=== PATIENT | female | born 1990 | race Two or more races ===

== ENCOUNTER 2016-12-20 22:28 | Emergency (ER) | payer SELFPAY ==
[~2016-12-20] VITALS: Ht 165.1 cm; Wt 59.0 kg
[2016-12-20] MEDS ORDERED: NKM (22:44)
[2016-12-20] MEDS ORDERED: NEURONTIN100 MG ORAL (22:44)
[2016-12-20 22:50] VITALS: BP 100/62
[2016-12-20] MEDS ORDERED: cefTRIAXone 1 GM in NS 55 ML IVPB ONE (23:00)
[2016-12-20] MEDS ORDERED: Naloxone 1mg/ml 2ml IVP ONE (23:15)
[2016-12-20 23:34] LABS: BASOPHILS % (AUTO) 1.2 % (0.0-2.0); EOSINOPHILS % (AUTO) 3.9 % (0.0-3.0); LYMPHOCYTES % (AUTO) 18.7 % (20.0-45.0); MEAN CORPUSCULAR HEMOGLOBIN 34.1 PG (27.0-31.0); MEAN CORPUSCULAR HGB CONC 35.2 G/DL (32.0-36.0); MEAN CORPUSCULAR VOLUME 97 FL (80-99); MEAN PLATELET VOLUME 6.8 FL (6.5-10.1); MONOCYTES % (AUTO) 10.6 % (1.0-10.0); NEUTROPHILS % (AUTO) 65.6 % (45.0-75.0); PLATELET COUNT 223 K/UL (150-450); RED BLOOD COUNT 3.69 M/UL (4.20-5.40); WHITE BLOOD COUNT 7.2 K/UL (4.8-10.8)
[2016-12-20 23:47] LABS: ACETAMINOPHEN < 10 ug/mL (10-30); ALANINE AMINOTRANSFERASE 12 U/L (3-33); ALBUMIN/GLOBULIN RATIO 1.5 (1.0-2.7); ALCOHOL < 10 mg/dL; ANION GAP 13 (5-15); ASPARTATE AMINO TRANSFERASE 14 U/L (5-40); CALCIUM 6.3 mg/dL (8.6-10.2); CARBON DIOXIDE 21 mEQ/L (20-30); CHLORIDE 111 mEQ/L (98-107); CREATININE 0.5 mg/dL (0.5-0.9); GLOMERULAR FILTRATION RATE > 60 mL/min (>60); HEMOLYSIS 12; SODIUM 145 mEQ/L (135-145); TOTAL PROTEIN 4.6 g/dL (6.6-8.7)
[2016-12-21 00:15] VITALS: BP 114/62
[2016-12-21 01:32] VITALS: BP 116/62
[2016-12-21] MEDS ORDERED: BACTRIM DS TAB1 EAC1 ORAL (01:33)
[2016-12-21 04:52] VITALS: BP 124/71
[2016-12-21 06:10] VITALS: BP 124/71
--- NOTE | 2016-12-21 07:08 | Emergency Room Report ---
History of Present Illness General Chief Complaint: Overdose Source: Patient, EMS Present Illness HPI This is a 26-year-old female presented after having recent use of the fentanyl and heroin. The patient denied any fever she denied a locations of pain this time. Patient was not given Narcan by EMS. Patient brought in by EMS after bystanders called. Allergies: Coded Allergies: No Known Allergies (Unverified , 12/20/16) Patient History Past Medical History: see triage record Last Menstrual Period: 3 weeks ago Reviewed Nursing Documentation: PMH: Agreed, PSxH: Agreed Nursing Documentation-PMH Past Medical History: No Stated History Review of Systems All Other Systems: negative except mentioned in HPI Physical Exam Vital Signs Date Time Temp Pulse Resp B/P Pulse Ox O2 Delivery O2 Flow Rate FiO2 12/20/16 22:39 98.2 93 10 100/62 96 Room Air Sp02 EP Interpretation: reviewed, normal General Appearance: normal inspection, well appearing, no apparent distress, alert Head: atraumatic ENT: normal ENT inspection, hearing grossly normal, normal voice Neck: normal inspection, full range of motion, supple, no bony tend Respiratory: normal inspection, lungs clear, normal breath sounds, no respiratory distress, no retraction, no wheezing, other - decreased respiratory effort Cardiovascular #1: regular rate, rhythm, no edema Gastrointestinal: normal inspection, normal bowel sounds, non tender, soft, no guarding, no hernia Genitourinary: no CVA tenderness Musculoskeletal: normal inspection, back normal, normal range of motion Neurologic: normal inspection, alert, responsive, speech normal Psychiatric: normal inspection, judgement/insight normal, mood/affect normal Skin: normal inspection, normal color, no rash Medical Decision Making Diagnostic Impression: Primary Impression: Drug overdose ER Course Patient presented for altered mental status. Differential diagnosis included but was not limited to ischemic stroke, subarachnoid hemorrhage, hypoglycemia, spinal cord injury, neurodegenerative disorder, urinary tract infection, hypoxemia. Because of complexity of patient's case laboratory testing and imaging studies were ordered. The patient was given IV Narcan with improvement in her mental status as well as her respiratory rate. The patient was observed in the emergency department stable throughout stay. The patient was subsequently discharged with her father. Labs Test 12/20/16 23:17 White Blood Count 7.2 K/UL (4.8-10.8) Red Blood Count 3.69 M/UL (4.20-5.40) Hemoglobin 12.6 G/DL (12.0-16.0) Hematocrit 35.7 % (37.0-47.0) Mean Corpuscular Volume 97 FL (80-99) Mean Corpuscular Hemoglobin 34.1 PG (27.0-31.0) Mean Corpuscular Hemoglobin Concent 35.2 G/DL (32.0-36.0) Red Cell Distribution Width 11.0 % (11.6-14.8) Platelet Count 223 K/UL (150-450) Mean Platelet Volume 6.8 FL (6.5-10.1) Neutrophils (%) (Auto) 65.6 % (45.0-75.0) Lymphocytes (%) (Auto) 18.7 % (20.0-45.0) Monocytes (%) (Auto) 10.6 % (1.0-10.0) Eosinophils (%) (Auto) 3.9 % (0.0-3.0) Basophils (%) (Auto) 1.2 % (0.0-2.0) Sodium Level 145 mEQ/L (135-145) Potassium Level 3.0 mEQ/L (3.4-4.9) Chloride Level 111 mEQ/L (98-107) Carbon Dioxide Level 21 mEQ/L (20-30) Anion Gap 13 (5-15) Blood Urea Nitrogen 7 mg/dL (7-23) Creatinine 0.5 mg/dL (0.5-0.9) Estimat Glomerular Filtration Rate > 60 mL/min (>60) Glucose Level 87 mg/dL (74-106) Calcium Level 6.3 mg/dL (8.6-10.2) Total Bilirubin < 0.2 mg/dL (0.0-1.2) Aspartate Amino Transf (AST/SGOT) 14 U/L (5-40) Alanine Aminotransferase (ALT/SGPT) 12 U/L (3-33) Alkaline Phosphatase 34 U/L (35-104) Total Protein 4.6 g/dL (6.6-8.7) Albumin 2.8 g/dL (3.5-5.2) Globulin 1.8 g/dL Albumin/Globulin Ratio 1.5 (1.0-2.7) Salicylates Level < 1 mg/dL (10-30) Acetaminophen Level < 10 ug/mL (10-30) Serum Alcohol < 10 mg/dL Last Vital Signs Date Time Temp Pulse Resp B/P Pulse Ox O2 Delivery O2 Flow Rate FiO2 12/21/16 06:10 98.3 79 12 124/71 98 Room Air Status: improved Disposition: HOME, SELF-CARE Condition: Stable Scripts Trimethoprim/Sulfamethoxazole 160/800* (BACTRIM DS TABLET*) 1 Each Tablet 1 TAB ORAL Q12H, #14 TAB 0 Refills Prov: Gurjit Camacho 12/21/16 Referrals: NOT CHOSEN IPA/,REFERRING (PCP) Patient Instructions: Drug Overdose Gurjit Camacho December 21, 2016 07:08
== END 2016-12-21 06:10 | disposition home or self-care (01) ==
LOC: EDBD 22:28 → EMR 23:00
DX: T40.1X1A Poisoning by heroin, accidental (unintentional), initial encounter (principal); T40.4X1A Poisoning by other synthetic narcotics, accidental (unintentional), initial encounter; Y92.9 Unspecified place or not applicable; R41.82 Altered mental status, unspecified
CPT/HCPCS: 36415; 80053; 85025; 96374; 96375; 99284; G0480; J0696; J2310; 80329